=== PATIENT | male | born 1975 | race Caucasian/White ===

== ENCOUNTER 2018-02-16 15:15 | Emergency (ER) | payer BC ==
[~2018-02-16] VITALS: Ht 177.8 cm; Wt 88.2 kg
[2018-02-16 15:31] VITALS: Ht 177.8 cm; Wt 88.2 kg
[2018-02-16 16:18] VITALS: BP 141/114
== END 2018-02-16 16:18 | disposition home or self-care (01) ==
LOC: ED 15:15
DX: S83.91XA Sprain of unspecified site of right knee, initial encounter (principal); M25.461 Effusion, right knee; Y93.64 Activity, baseball; Y92.89 Other specified places as the place of occurrence of the external cause; Y99.8 Other external cause status
CPT/HCPCS: Q0092